=== PATIENT | male | born 2000 | race Caucasian/White ===

== ENCOUNTER 2022-04-16 00:10 | Emergency (ER) | payer SELFPAY ==
[~2022-04-16] VITALS: Ht 175.3 cm; Wt 70.0 kg
[2022-04-16] MEDS ORDERED: ONDANSETRON HCL 4MG/2ML INJ IV STA (01:14)
[2022-04-16] MEDS ORDERED: MORPHINE SULFATE 4 MG/ML CPJ (NOT FOR IM USE) IV STA (01:14)
[2022-04-16] MEDS ORDERED: SODIUM CHLORIDE 0.9% 1,000 ML IV ONE (01:15)
[2022-04-16 01:31] LABS: BASOPHILS % 0.2 % (0.0-2.0); EOSINOPHILS % 0.3 % (0.0-5.0); HEMATOCRIT. 45.6 % (42.0-52.0); HEMOGLOBIN. 15.5 g/dL (14.0-18.0); LYMPHOCYTES % 14.7 % (20.0-50.0); MEAN CORPUSCULAR HEMOGLOBIN 30.4 pg (28.0-32.0); MEAN CORPUSCULAR VOLUME 89.5 fL (80.0-94.0); MEAN PLATELET VOLUME 7.5 fl (7.4-10.4); MONOCYTES % 8.1 % (2.0-8.0); NEUTROPHILS % 76.7 % (40.0-76.0); PLATELET 251 x1000/uL (130-400); RED BLOOD CELL COUNT 5.09 mill/uL (4.7-6.1); RED CELL DISTRIBUTION WIDTH 13.1 % (11.6-14.6)
[2022-04-16 01:37] LABS: CHLORIDE 107 mEq/L (98-107)
[2022-04-16] MEDS ORDERED: IOHEXOL-300 100 ML BOTTLE ONE (03:09)
[2022-04-16] MEDS ORDERED: ONDANSETRON HCL 4MG/2ML INJ IV NR (04:30)
[2022-04-16] MEDS ORDERED: MORPHINE SULFATE 4 MG/ML CPJ (NOT FOR IM USE) IV NR (04:30)
[2022-04-16] MEDS ORDERED: HYDR-4001 MT (05:31)
[2022-04-16] MEDS ORDERED: DOCU-138 MT (05:31)
[2022-04-16 07:40] VITALS: BP 112/62
== END 2022-04-16 07:51 | disposition home or self-care (01) ==
LOC: ER 00:10
DX: S30.1XXA Contusion of abdominal wall, initial encounter (principal); W50.0XXA Accidental hit or strike by another person, initial encounter; Y93.66 Activity, soccer; Y92.322 Soccer field as the place of occurrence of the external cause
CPT/HCPCS: 36415; 74177; 80053; 85025; 86850; 86900; 86901; 96361; 96374; 99291; J2270; J7030; Q9967

== ENCOUNTER 2024-07-26 01:07 | Emergency (ER) | payer SELFPAY ==
[~2024-07-26] VITALS: Ht 172.7 cm; Wt 66.0 kg
[~2024-07-26 01:07] MED LIST: DOCU-138 MT; HYDR-4001 MT
[2024-07-26 01:19] VITALS: BP 125/67; TEMP 37.1; O2SAT 100
[2024-07-26 01:20] VITALS: PULSE 80; RESP 16; O2SAT 98
[2024-07-26] MEDS: DEXAMETHASONE 4MG/ML 1ML VIAL IM ONE (02:15)
[2024-07-26] MEDS: DIPHENHYDRAMINE 25MG CAPSULE PO ONE (03:24)
[2024-07-26] MEDS ORDERED: DIPH25CA83 MT (04:11)
== END 2024-07-26 04:51 | disposition home or self-care (01) ==
LOC: ER 01:07
DX: T78.1XXA Other adverse food reactions, not elsewhere classified, initial encounter (principal); Z90.49 Acquired absence of other specified parts of digestive tract; Z79.52 Long term (current) use of systemic steroids; Z79.899 Other long term (current) drug therapy; Z91.014 Allergy to mammalian meats; X58.XXXA Exposure to other specified factors, initial encounter
CPT/HCPCS: 99283; 96372; Q0163; J1100